=== PATIENT | male | born 1965 | race African-American/Black ===

== ENCOUNTER 2023-09-26 23:44 | Emergency (ER) | payer MEDICAID ==
[~2023-09-26] VITALS: Ht 177.8 cm; Wt 73.0 kg
[2023-09-26 23:52] VITALS: TEMP 98.3; O2SAT 99
[2023-09-27] MEDS ORDERED: LIDOCAINE HCL/EPINEPHRINE 1%-EPI 1:100,000 50 ML VIAL INFIL ONE (02:00)
[2023-09-27] MEDS ORDERED: LIDOCAINE HCL/EPINEPHRINE 1%-EPI 1:100,000 20 ML VIAL INFIL NR (02:15)
[2023-09-27] MEDS ORDERED: ACET-2708 MT (02:51)
[2023-09-27 03:27] VITALS: BP 132/71; PULSE 72; RESP 17
== END 2023-09-27 03:29 | disposition home or self-care (01) ==
LOC: ER 23:44 → EDBD 23:44 → ER 09-27 03:29
DX: S01.01XA Laceration without foreign body of scalp, initial encounter (principal); S93.401A Sprain of unspecified ligament of right ankle, initial encounter; S13.4XXA Sprain of ligaments of cervical spine, initial encounter; V49.49XA Driver injured in collision with other motor vehicles in traffic accident, initial encounter; Y93.89 Activity, other specified; Y92.89 Other specified places as the place of occurrence of the external cause; Y99.8 Other external cause status
CPT/HCPCS: 12001; 99284; 73610; 70450; 72125; J3490; Z7610 ×2